=== PATIENT | female | born 1995 | race Caucasian/White ===

== ENCOUNTER 2017-02-18 21:06 | Outpatient (CLI) | payer OTHER ==
[2017-03-07 18:20] LABS: ADD UMIC YES; UR ASCORBIC ACID NEGATIVE (NEGATIVE); UR BILIRUBIN (Dip) NEGATIVE (NEGATIVE); UR BLOOD (Dip) NEGATIVE (NEGATIVE); UR CLARITY SLIGHTLY CLOUDY (CLEAR); UR COLOR YELLOW (YELLOW); UR GLUCOSE (Dip) NEGATIVE (NEGATIVE); UR KETONES (Dip) TRACE mg/dL (NEGATIVE); UR LEUKOCYTE ESTERASE (Dip) TRACE Leu/ul (NEGATIVE); UR NITRITE (Dip) NEGATIVE (NEGATIVE); UR RBC 1 /HPF (0-5); UR SQUAMOUS EPITHELIAL CELL FEW /HPF (FEW); UR TOTAL PROTEIN (Dip) 1+ mg/dl (NEGATIVE); UR UROBILINOGEN (Dip) 2+ mg/dL (NEGATIVE); UR WBC 2 /HPF (0-5)
== END 2017-03-07 18:34 | disposition home or self-care (01) ==
LOC: OBT 21:06 → L-D 03-07 16:22 → OBT 03-07 18:34
DX: O62.9 Abnormality of forces of labor, unspecified (principal); Z3A.35 35 weeks gestation of pregnancy
CPT/HCPCS: 76818; 81001

== ENCOUNTER 2017-03-15 19:39 | Inpatient (IN) | payer OTHER ==
[2017-03-15 20:59] LABS: RUPTURE FETAL MEMBRANES POSITIVE (NEGATIVE)
[2017-03-15] MEDS: LACTATED RINGER'S 1,000 ML IV (21:56)
[2017-03-15] MEDS ORDERED: OXYTOCIN 30 UNITS/LR 500 ML IV (22:00)
[2017-03-15] MEDS ORDERED: MISOPROSTOL 200 MCG TAB PR (22:00)
[2017-03-15] MEDS ORDERED: CARBOPROST 250 MCG INJ IM (22:00)
[2017-03-15] MEDS ORDERED: BUTORPHANOL 2 MG INJ IV (22:00)
[2017-03-15] MEDS ORDERED: LIDOCAINE 1% (MPF) 30 ML INJ INJ (22:00)
[2017-03-15] MEDS: DEXTROSE 5%-LR 1,000 ML IV (22:00)
[2017-03-15] MEDS ORDERED: IBUPROFEN 600 MG TAB PO (22:00)
[2017-03-15] MEDS ORDERED: METHYLERGONOVINE 0.2 MG INJ IM (22:00)
[2017-03-15] MEDS: AMPICILLIN 2 GM/NS (PMX) 100 ML IV (22:22)
[2017-03-15] MEDS: OXYTOCIN 30 UNITS/LR 500 ML IV (22:38)
[2017-03-15 23:41] LABS: ADD MAN DIFF? NO
[2017-03-15 23:43] LABS: BASOPHILS % 0.2 % (0.0-2.0); EOSINOPHILS # 0.1 10^3/ul (0.0-0.5); HEMATOCRIT 37.5 % (37.0-47.0); HEMOGLOBIN 12.2 g/dl (12.0-16.0); LYMPHOCYTES # 2.4 10^3/ul (0.8-2.9); LYMPHOCYTES % 26.7 % (15.0-51.0); MEAN CORPUSCULAR HEMOGLOBIN 27.1 pg (29.0-33.0); MEAN CORPUSCULAR HGB CONC 32.5 g/dl (32.0-37.0); MEAN CORPUSCULAR VOLUME 83.1 fl (82.0-101.0); MEAN PLATELET VOLUME 10.8 fl (7.4-10.4); MONOCYTE # 0.7 10^3/ul (0.3-0.9); MONOCYTES % 7.9 % (0.0-11.0); NEUTROPHIL # 5.8 10^3/ul (1.6-7.5); NEUTROPHILS % 63.8 % (39.0-77.0); PLATELET COUNT 312 10^3/UL (140-415); RED BLOOD COUNT 4.51 10^6/ul (4.20-5.40)
[2017-03-15 23:58] LABS: INR 0.94; PROTIME 12.7 Sec (11.9-14.9)
[2017-03-15 23:59] LABS: PARTIAL THROMBOPLASTIN TIME 29.2 Sec (25.0-35.0)
[2017-03-16] MEDS: LACTATED RINGER'S 1,000 ML IV ×3 (00:07→12:53)
[2017-03-16] MEDS ORDERED: FENTAnyl 2MCG/ML-ROPIV 0.2% 100 ML (00:35)
[2017-03-16 00:46] LABS: HIV 1&2 ANTIBODY NEGATIVE (NEGATIVE)
[2017-03-16 00:47] LABS: HEPATITIS B SURFACE ANTIGEN NEGATIVE (NEGATIVE)
[2017-03-16] MEDS ORDERED: ONDANSETRON 4 MG INJ IV ×2 (01:30→14:30)
[2017-03-16] MEDS ORDERED: NALOXONE (0.4 MG/ML) INJ IV (01:30)
[2017-03-16] MEDS: AMPICILLIN 1 GM/NS (PMX) 50 ML IV ×4 (02:20→14:00)
[2017-03-16] MEDS: DIPHENHYDRAMINE 50 MG INJ IV (04:21)
[2017-03-16] MEDS: DEXTROSE 5%-LR 1,000 ML IV ×2 (05:43→13:16)
[2017-03-16] MEDS: FENTAnyl 2MCG/ML-ROPIV 0.2% 100 ML BAG EPI ×2 (05:47→09:50)
[2017-03-16] MEDS: OXYTOCIN 30 UNITS/LR 500 ML IV ×3 (13:54→17:54)
[2017-03-16] MEDS ORDERED: METHYLERGONOVINE 0.2 MG INJ IM (14:30)
[2017-03-16] MEDS ORDERED: HYDROCODONE/APAP (5/325) TAB PO (14:30)
[2017-03-16] MEDS ORDERED: CARBOPROST 250 MCG INJ IM (14:30)
[2017-03-16] MEDS ORDERED: DIPHENHYDRAMINE 25 MG CAP PO (14:30)
[2017-03-16] MEDS ORDERED: OXYTOCIN 30 UNITS/LR 500 ML IV (14:30)
[2017-03-16] MEDS ORDERED: ACETAMINOPHEN 325 MG TAB PO ×2 (14:30)
[2017-03-16] MEDS ORDERED: MISOPROSTOL 200 MCG TAB PR (14:30)
[2017-03-16 15:00] LABS: ADD MAN DIFF? NO
[2017-03-16 15:01] LABS: WHITE BLOOD COUNT 10.2 10^3/ul (4.8-10.8)
[2017-03-16 15:01] LABS: BASOPHILS % 0.2 % (0.0-2.0); EOSINOPHILS % 0.4 % (0.0-7.0); HEMATOCRIT 37.1 % (37.0-47.0); LYMPHOCYTES # 1.4 10^3/ul (0.8-2.9); LYMPHOCYTES % 13.6 % (15.0-51.0); MEAN CORPUSCULAR HEMOGLOBIN 27.1 pg (29.0-33.0); MEAN CORPUSCULAR HGB CONC 32.3 g/dl (32.0-37.0); MEAN CORPUSCULAR VOLUME 83.7 fl (82.0-101.0); MEAN PLATELET VOLUME 10.6 fl (7.4-10.4); MONOCYTE # 0.5 10^3/ul (0.3-0.9); MONOCYTES % 5.3 % (0.0-11.0); NEUTROPHIL # 8.2 10^3/ul (1.6-7.5); NEUTROPHILS % 80.2 % (39.0-77.0); PLATELET COUNT 263 10^3/UL (140-415); RED BLOOD COUNT 4.43 10^6/ul (4.20-5.40); RED CELL DISTRIBUTION WIDTH 16.2 % (11.5-14.5)
[2017-03-16 15:29] LABS: RAPID PLASMA REAGIN NONREACTIVE (NR)
[2017-03-16] MEDS: DIBUCAINE 1% 30 GM OINT PR (17:54)
[2017-03-16] MEDS: IBUPROFEN 800 MG TAB PO ×2 (17:55→23:42)
[2017-03-16] MEDS: LANOLIN 7 GM TUBE TOP (17:55)
[2017-03-16] MEDS: SENNA/DOCUSATE NA (8.6MG/50MG) TAB PO (21:26)
[2017-03-17] MEDS: IBUPROFEN 800 MG TAB PO ×4 (05:42→23:27)
[2017-03-17 08:22] LABS: ADD MAN DIFF? NO
[2017-03-17 08:31] LABS: WHITE BLOOD COUNT 10.2 10^3/ul (4.8-10.8)
[2017-03-17 08:31] LABS: BASOPHIL # 0.1 10^3/ul (0.0-0.1); BASOPHILS % 0.5 % (0.0-2.0); EOSINOPHILS # 0.1 10^3/ul (0.0-0.5); EOSINOPHILS % 1.2 % (0.0-7.0); HEMATOCRIT 35.1 % (37.0-47.0); HEMOGLOBIN 11.7 g/dl (12.0-16.0); LYMPHOCYTES # 2.4 10^3/ul (0.8-2.9); LYMPHOCYTES % 23.1 % (15.0-51.0); MEAN CORPUSCULAR HEMOGLOBIN 27.5 pg (29.0-33.0); MEAN CORPUSCULAR HGB CONC 33.3 g/dl (32.0-37.0); MEAN CORPUSCULAR VOLUME 82.4 fl (82.0-101.0); MEAN PLATELET VOLUME 10.7 fl (7.4-10.4); MONOCYTE # 0.8 10^3/ul (0.3-0.9); MONOCYTES % 8.3 % (0.0-11.0); NEUTROPHIL # 6.8 10^3/ul (1.6-7.5); NEUTROPHILS % 66.5 % (39.0-77.0); PLATELET COUNT 229 10^3/UL (140-415); RED BLOOD COUNT 4.26 10^6/ul (4.20-5.40); RED CELL DISTRIBUTION WIDTH 16.6 % (11.5-14.5)
[2017-03-17] MEDS: SENNA/DOCUSATE NA (8.6MG/50MG) TAB PO ×2 (09:12→23:27)
[2017-03-18] MEDS: HYDROCODONE/APAP (5/325) TAB PO (03:32)
[2017-03-18] MEDS: INFLUENZA VIRUS VACCINE 0.5 ML (DISPENSING) IM* (03:43)
[2017-03-18] MEDS: IBUPROFEN 800 MG TAB PO ×2 (06:01→12:15)
[2017-03-18] MEDS: MEASLES,MUMPS,RUBELLA VACCINE INJ SC* (09:00)
[2017-03-18] MEDS: VARICELLA VACCINE LIVE/PF 1,350 UNIT/0.5 ML ML SC* (09:00)
[2017-03-18] MEDS ORDERED: INFLUENZA VIRUS VACCINE 0.5 ML SYG IM* (12:00)
[2017-03-18] MEDS: SENNA/DOCUSATE NA (8.6MG/50MG) TAB PO (12:15)
[2017-03-18] MEDS: DIPHTH/TET/ACEL PERTUSS (ADULT) 0.5 ML VIAL IM* (12:16)
== END 2017-03-18 19:10 | disposition home or self-care (01) | DRG 775 ==
LOC: OBT 19:39 → L-D 19:40 → OBT 21:15 → L-D 21:15 → PP1 03-16 16:48
PROVIDERS: Obstetrics & Gynecology
PROC: 10E0XZZ Delivery of Products of Conception, External Approach (ICD-10-PCS; principal; 2017-03-16)
PROC: 3E033VJ Introduction of Other Hormone into Peripheral Vein, Percutaneous Approach (ICD-10-PCS; 2017-03-16)
DX: O24.429 Gestational diabetes mellitus in childbirth, unspecified control (principal); E66.01 Morbid (severe) obesity due to excess calories; O99.214 Obesity complicating childbirth; Z68.37 Body mass index [BMI] 37.0-37.9, adult; Z3A.39 39 weeks gestation of pregnancy; Z37.0 Single live birth
CPT/HCPCS: 62319; 76815; 82962; 84112; 85025; 85610; 85730; 86592; 86703; 86900; 86901; 87340; 90686; 90715; 90716